=== PATIENT | male | born 1995 | race Caucasian/White ===

== ENCOUNTER 2016-06-25 08:11 | Emergency (ER) | payer OTHER ==
[~2016-06-25] VITALS: Ht 170.2 cm; Wt 69.8 kg
[2016-06-25 08:09] VITALS: TEMP 36.8; Ht 170.2 cm; Wt 69.8 kg
[~2016-06-25 08:11] MED LIST: AMOX875T PO; NAPR500T3 PO
[2016-06-25] MEDS ORDERED: BND25 PO (08:41)
[2016-06-25] MEDS ORDERED: FEXO1TAB49 PO (08:41)
--- NOTE | 2016-06-25 09:28 | EMERGENCY ROOM VISIT NOTE ---
History Report prepared by Lou: Toni Dee Under the Supervision of: Dr. Shashank Og D.O. First contact with patient: 08:13 Chief Complaint: ALLERGIC REACTION Stated Complaint: ALLERGIC REACTION Nursing Triage Summary: Pt arrives via ALS litter for eval of hives around hands/wrists, "felt lip was swollen and lungs felt tight." Pt has been experiencing hives since , unknown cause. Pt woke up at 0600 and took an Ariadna with no relief, at 0645 took 50mg Benadryl. Pt is to see an 2nd grade teacher. Pt given Albuterol neb en route, states breathing is better. No hives noted upon arrival. History of Present Illness The patient is a 20 year old male who presents to the Emergency Room with complaints of an allergic reaction that is improving. The patient woke up this morning with hives over his hands and arms. The patient also notes lip swelling and a sensation in his throat that made it difficult to swallow. He took two doses of Benadryl and Ariadna 180 mg. He no longer has the feeling in his throat , and the hives and lip swelling are improving. The patient became short of breath secondary to anxiety, so he called an ambulance. The patient became anxious because his brother has a severe peanut allergy. He was given a breathing treatment in the ambulance en route. The patient has been experiencing hives intermittently since . The hives usually appear on his hands and wrists. The patient has been taking Ariadna 180 mg BID. He does not take Benadryl regularly. He has not been using any new detergents, soaps, or cleaning products. He also has not been eating new foods or wearing new clothing. He does not take any medications other than Ariadna. The patient is scheduled to see Dr. Delgado (Associate Professor [employer]) next week. He denies any medical problems. Patient denies headache, change in vision, fevers, chest pain, nausea , vomiting, diarrhea, pain with urination, and melena. Source of History: patient Onset: this morning Position: other (global) Quality: other (allergic reaction) Timing: other (improving) Modifying Factors (Relieving): other (Benadryl) Associated Symptoms: + SOB, + rash, No chest pain, No diarrhea, No fevers, No headache, No melena, No nausea, No urinary symptoms, No vomiting Review of Systems See HPI for pertinent positives & negatives. A total of 10 systems reviewed and were otherwise negative. Past Medical & Surgical Medical Problems: (1) Back pain with radiation Family History Allergies in brother Social History Smoking Status: Never Smoker Housing Status: lives with roommate Occupation Status: [employer] student Current/Historical Medications Scheduled Diphenhydramine Hcl (Benadryl), 25 MG PO Q4H Fexofenadine Hcl (Ariadna Allergy), 1 TAB PO DAILY Allergies Coded Allergies: No Known Allergies (Unverified , 06/25/16) Physical Exam Vital Signs Date Time Temp Pulse Resp B/P Pulse Ox O2 Delivery O2 Flow Rate FiO2 06/25/16 10:04 73 18 115/72 98 06/25/16 08:18 77 06/25/16 08:11 100 Room Air 06/25/16 08:09 36.8 86 18 147/86 100 Room Air Physical Exam GENERAL: Sitting up in bed, alert, well appearing, well nourished, no acute distress, non-toxic EYE EXAM: normal conjunctiva. OROPHARYNX: no exudate, no erythema, lips, buccal mucosa, and tongue normal and mucous membranes are moist NECK: supple, no nuchal rigidity, no adenopathy, non-tender, no stridor. LUNGS: Clear to auscultation. Normal chest wall mechanics HEART: no murmurs, S1 normal and S2 normal ABDOMEN: abdomen soft, non-tender, normo-active bowel sounds, no masses, no rebound or guarding. BACK: Back is symmetrical on inspection and there is no deformity, no midline tenderness, no CVA tenderness. SKIN: 3 small blotches of erythema on dorsal aspect of the left wrist/hand, appear to be slightly raised and blanching. UPPER EXTREMITIES: upper extremities are grossly normal. LOWER EXTREMITIES: No pitting edema. NEURO EXAM: Normal sensorium, cranial nerves II-XII grossly intact, normal speech, no gross weakness of arms, no gross weakness of legs. Gross sensation intact. Medical Decision & Procedures Medications Administered Medications (Trade) Dose Ordered Sig/Esequiel Route Start Time Stop Time Status Last Admin Dose Admin Prednisone (PredniSONE TAB) 60 mg NOW STAT PO 06/25/16 08:25 06/25/16 08:26 DC 06/25/16 08:34 60 MG ED Course ED COURSE: Vital signs were reviewed and were normal. The patients medical record was reviewed The above diagnostic studies were performed and reviewed. ED treatments and interventions as stated above. 0817: The patient was evaluated in room B7. A complete history and physical examination was performed. 0825: Prednisone 60 mg PO. 0945: The patient's symptoms completely resolved. 1000: Upon reevaluation, the patient is feeling better.I discussed my findings with the patient and he understands and agrees with the treatment plan. Based on the patients age, coexisting illnesses, exam and lab findings the decision to treat as an outpatient was made. The patient remained stable while under my care. The patient appeared well at the time of discharge. Medical Decision Etiologies such as contact dermatitis, viral exanthem, urticaria, allergic reaction, Saavedra-Jarrett syndrome, toxic epidermal necrolysis, erythema multiforme, cellulitis, scabies, HSV, varicella, zoster, eczema, staph scalded skin syndrome, fungal infection, as well as others were entertained. Patient is a 20-year-old male who presents the ER for allergic reaction. He notes that this has been coming and going about 3 times a week since . He notes that he normally gets hives on his wrist bilaterally. Since then he has been taking an antihistamine daily along with intermittent Benadryl. He has an appointment with an 2nd grade teacher of next week. He notes that this morning he called EMS because he noticed some swelling in his left upper lip. He also notes that he felt like he was a little short of breath. EMS transported him following a neb treatment. Following that he had a significant improvement of his symptoms. He did take Benadryl and his antihistamine this morning but he did not take it yesterday. Patient was given a dose of steroids while in the ER. He remained asymptomatic. He is discharged follow-up with his 2nd grade teacher next . Discussed with Pt concerning signs and symptoms to watch out for. Pt was instructed to follow up with their PCP and discussed with the patient their option to return to the ED at anytime for persistent or worsening symptoms. The appropriate anticipatory guidance and out-patient management, including indications for return to the emergency department, were explained at length to the patient and understood. Impression Primary Impression: Allergic reaction Scribe Attestation The scribe's documentation has been prepared under my direction and personally reviewed by me in its entirety. I confirm that the note above accurately reflects all work, treatment, procedures, and medical decision making performed by me. Departure Information Dispostion Home / Self-Care Referrals [facility] (PCP) Forms HOME CARE DOCUMENTATION FORM, IMPORTANT VISIT INFORMATION Patient Instructions ED Allergic Reaction General Other, My [facility] Additional Instructions Please follow up with your primary care doctor or if you are a student [facility] with in the next 24 hours. Any worsening of your symptoms, please return to the ED immediately. This includes fevers greater than 100.4, spreading of the rash, trouble breathing, trouble swallowing, or any other concerning signs or symptoms from your standpoint. Please continue Benadryl and antihistamines. Problem Qualifiers Primary Impression: Allergic reaction Encounter type: initial encounter Qualified Codes: T78.40XA - Allergy, unspecified, initial encounter
[2016-06-25 10:04] VITALS: BP 115/72; PULSE 73; O2SAT 98
== END 2016-06-25 10:04 | disposition home or self-care (01) ==
LOC: EDBD 08:11 → C.EDB 08:12
DX: T78.40XA Allergy, unspecified, initial encounter (principal); X58.XXXA Exposure to other specified factors, initial encounter

== ENCOUNTER → 2016-07-01 | Outpatient (CLI) | payer OTHER ==
[~2016-07-01] MED LIST changes: -AMOX875T PO; +BND25 PO; +FEXO1TAB49 PO; -NAPR500T3 PO
[2016-07-01 13:13] LABS: ALT/SGPT 55 U/L (12-78); AST/SGOT 80 U/L (15-37); BLOOD UREA NITROGEN 16 mg/dl (7-18); BUN/CREATININE RATIO 16.8 (10-20); CALCIUM 9.2 mg/dl (8.5-10.1); CARBON DIOXIDE 29 mmol/L (21-32); CHLORIDE 104 mmol/L (98-107); CREATININE 0.96 mg/dl (0.60-1.40); GLUCOSE 101 mg/dl (70-99); SODIUM 141 mmol/L (136-145)
[2016-07-01 13:16] LABS: ALB/GLOB RATIO 1.3 (0.9-2); ALKALINE PHOSPHATASE 63 U/L (45-117)
[2016-07-01 13:33] LABS: BASO % 0.2 %; BASO ABS # 0.01 K/uL (0-0.2); COMPLETE YES; EOS % 0.6 %; HEMATOCRIT 45.3 % (42-52); IG% 0.2 %; LYMPH % 25.6 %; MEAN CELL VOLUME 92.1 fL (80-100); MEAN CORPUSCULAR HEMOGLOBIN 32.7 pg (25-34); MEAN CORPUSCULAR HGB CONC 35.5 g/dl (32-36); MEAN PLATELET VOLUME 12.4 fL (7.4-10.4); MONO % 5.1 %; NEUT % 68.3 %; PLATELET COUNT 129 K/uL (130-400); PLT ESTIMATE DECREASED; RED BLOOD COUNT 4.92 M/uL (4.7-6.1); WHITE BLOOD COUNT 4.69 K/uL (4.8-10.8)
[2016-07-08 12:17] LABS: ALTERNARIA CLASS 0; ALTERNARIA IGE <0.10 KU/L; ASPERG FUMIG CLASS 0; ASPERG FUMIG IGE <0.10 KU/L; BAHIA GRASS ASM CLASS 2; BAHIA GRASS IGE 2.12 KU/L; BEEF CLASS 0; BEEF IGE <0.10 KU/L; BERMUDA GRASS CLASS 3; BERMUDA GRASS IGE 5.56 KU/L; BIRCH CLASS 4; BLACK LOCUST CLASS 1; CASHEW CLASS 0/1; CAT DANDER CLASS 1; CHOCOLATE CLASS 0; CHOCOLATE IGE <0.10 KU/L; CLADOSPORIUM HER CLASS 0; CLADOSPORIUM HER IGE <0.10 KU/L; CLAM CLASS 0; CLAM IGE <0.10 KU/L; COCKROACH CLASS 0/1; CORN CLASS 2; CORN IGE 0.92 KU/L; CRAB CLASS 0/1; CRAB IGE 0.23 KU/L; D. FARINAE CLASS 0/1; D. FARINAE IGE 0.33 KU/L; D. PTERONYSSINUS CLASS 1; D. PTERONYSSINUS IGE 0.46 KU/L; DOG DANDER CLASS 0/1; EGG MIX CLASS 0/1; EGG MIX IGE 0.11 KU/L; ELM CLASS 3; ENGLISH PLAN CLASS 2; ENGLISH PLAN IGE 3.03 KU/L; HAZELNUT CLASS 3; JOHNSON CLASS 2; JOHNSON IGE 1.45 KU/L; JUNE (KENTUCKY BLUE) CLASS 4; LOBSTER CLASS 0/1; LOBSTER IGE 0.11 KU/L; MAPLE (BOX ELDER) IGE 7.45 KU/L; MAPLE CLASS 3; MOUNTAIN CEDAR ASM CLASS 2; MOUNTAIN CEDAR IGE 0.73 KU/L; MUCOR CLASS 0; MUCOR IGE <0.10 KU/L; NETTLE CLASS 1; NETTLE IGE 0.53 KU/L; PEANUT IGE 2.82 KU/L; PECAN NUT CLASS 0; PECAN NUT IGE <0.10 KU/L; PENIC NOTATUM CLASS 0; PENIC NOTATUM IGE <0.10 KU/L; PISTACHIO CLASS 1; PISTACHIO IGE 0.62 KU/L; PORK CLASS 0; PORK IGE <0.10 KU/L; RAST ALMOND CLASS 0/1; RAST ALMOND IGE 0.28 KU/L; RAST BRAZIL NUT CLASS 0; RAST BRAZIL NUT IGE <0.10 KU/L; RAST HAZELNUT IGE 8.62 KU/L; ROUGH PIGWEED CLASS 3; ROUGH PIGWEED IGE 5.12 KU/L; SHORT RAGWEED CLASS 2; SHORT RAGWEED IGE 3.09 KU/L; SHRIMP CLASS 0/1; SOY CLASS 1; STEMPHY BOTRY CLASS 0; STEMPHY BOTRY IGE <0.10 KU/L; WALNUT CLASS 1; WHEAT CLASS 1; WHEAT IGE 0.35 KU/L; WHITE HICKORY ASM CLASS 3; WHITE HICKORY IGE 5.22 kU/L (<0.35); WHITE MULBERRY CLASS 0; WHITE MULBERRY IGE <0.10 KU/L
== END | disposition home or self-care (01) ==
LOC: C.LAB1850 11:40
PROVIDERS: ATTEND Internal Medicine Pulmonary Disease
DX: H10.10 Acute atopic conjunctivitis, unspecified eye (principal)